=== PATIENT | female | born 1955 ===

== ENCOUNTER 2024-04-30 04:27 | Day surgery (SDC) | payer OTHER ==
[2024-04-29 09:10] VITALS: BMI 24.4
[2024-04-30] MEDS ORDERED: ACETAMINOPHEN INJECTION 100 ML IVPB ONE (07:29)
[2024-04-30] MEDS ORDERED: DEXAMETHASONE SOD PHOSPHATE 4 MG/1 ML VIAL ONE (07:31)
[2024-04-30] MEDS ORDERED: ALBUTEROL SO4 HFA INHALER IH ONE (07:31)
[2024-04-30] MEDS ORDERED: GLYCOPYRROLATE 0.2 MG/1 ML VIAL ONE (07:31)
[2024-04-30] MEDS ORDERED: KETOROLAC TROMETHAMINE 30 MG/1 ML VIAL ONE (07:31)
[2024-04-30] MEDS ORDERED: ONDANSETRON 4 MG/2 ML VIAL ONE (07:31)
[2024-04-30] MEDS ORDERED: LIDOCAINE HCL/PF 2% SDV 5ML VIAL ONE (07:31)
[2024-04-30] MEDS ORDERED: MIDAZOLAM HCL 2 MG/2 ML SINGLE DOSE VIAL ONE (07:32)
[2024-04-30] MEDS ORDERED: PROPOFOL 20 ML ONE (07:33)
[2024-04-30] MEDS ORDERED: mitoMYcin 40 MG/50 ML DISP.SYRIN (FOR OR USE) IC STA (07:35)
[2024-04-30] MEDS: ceFAZolin 2 GRAM PREMIX BAG IVPB ONE (08:00)
[2024-04-30] MEDS: DEXTROSE 5%-0.45% SALINE 1,000 ML IV SCH (08:50)
[2024-04-30] MEDS ORDERED: ONDANSETRON 4 MG/2 ML VIAL IVPUSH PRN (09:47)
[2024-04-30] MEDS ORDERED: oxyCODONE HCL 5 MG TABLET PO PRN (09:47)
[2024-04-30] MEDS ORDERED: LACTATED RINGERS SOLUTION 1,000 ML IV SCH (10:00)
[2024-04-30 10:23] VITALS: RESP 20
[2024-04-30 12:36] VITALS: BP 137/71; PULSE 75; TEMP 97.5
== END 2024-04-30 12:30 | disposition home or self-care (01) ==
LOC: JASU-SURG 04:27
PROVIDERS: ATTEND Urology
PROC: 3E0K805 Introduction of Other Antineoplastic into Genitourinary Tract, Via Natural or Artificial Opening Endoscopic (ICD-10-PCS; 2024-04-30)
PROC: 0TBB8ZZ Excision of Bladder, Via Natural or Artificial Opening Endoscopic (ICD-10-PCS; principal; 2024-04-30 07:30)
DX: C67.9 Malignant neoplasm of bladder, unspecified (principal)
CPT/HCPCS: 88307-TC; 94760; J0131

== ENCOUNTER 2024-08-26 04:55 | Day surgery (SDC) | payer OTHER ==
[2024-08-18 14:09] VITALS: BMI 25.0
[2024-08-26] MEDS ORDERED: ONDANSETRON 4 MG/2 ML VIAL IVPUSH PRN (08:25)
[2024-08-26] MEDS ORDERED: DEXTROSE 5%-0.45% SALINE 1,000 ML IV SCH (08:30)
[2024-08-26] MEDS ORDERED: MIDAZOLAM HCL 2 MG/2 ML SINGLE DOSE VIAL ONE (08:49)
[2024-08-26] MEDS: ceFAZolin SODIUM 1 GM VIAL IVPB ONE (08:54)
[2024-08-26] MEDS ORDERED: PROPOFOL 20 ML ONE (09:01)
[2024-08-26] MEDS: LACTATED RINGERS SOLUTION 1,000 ML IV SCH (10:40)
[2024-08-26] MEDS ORDERED: PHENAZOPYRIDINE HCL 100 MG TABLET (FP) ONE (11:03)
[2024-08-26] MEDS: mitoMYcin 40 MG/50 ML DISP.SYRIN (FOR OR USE) IC ONE (11:05)
[2024-08-26] MEDS: PHENAZOPYRIDINE HCL 100 MG TABLET (FP) PO ONE (11:05)
[2024-08-26 11:45] VITALS: TEMP 97.9
[2024-08-26 13:00] VITALS: BP 117/70; PULSE 73; RESP 20
== END 2024-08-26 13:15 | disposition home or self-care (01) ==
LOC: JASU-SURG 04:55
PROVIDERS: ATTEND Urology
PROC: 0TBB8ZZ Excision of Bladder, Via Natural or Artificial Opening Endoscopic (ICD-10-PCS; principal; 2024-08-26 08:30)
DX: C67.9 Malignant neoplasm of bladder, unspecified (principal)
CPT/HCPCS: 88307-TC; 94760